=== PATIENT | female | born 1950 | race Caucasian/White ===

== ENCOUNTER 2017-11-04 21:00 | Inpatient (IN) | payer OTHER, MEDICAID ==
[~2017-11-04] VITALS: Ht 182.9 cm; Wt 90.8 kg
[2017-11-04 21:06] VITALS: Ht 182.9 cm; Wt 90.8 kg
[2017-11-04 21:24] LABS: BASOPHIL % 0.6 % (0-2); PLATELET COUNT 215 x10^3mcL (130-400)
[2017-11-04 21:36] LABS: ALBUMIN 3.4 g/dL (3.4-5.0); BILIRUBIN TOTAL 0.41 mg/dL (0.20-1.00); CALCIUM 8.8 mg/dL (8.5-10.1); CARBON DIOXIDE 31.1 mmol/L (21-32); CREATININE SERUM 1.1 mg/dL (0.6-1.0); TOTAL PROTEIN, SERUM 6.2 g/dL (6.4-8.2)
[2017-11-04 21:39] LABS: POTASSIUM SERUM 2.9 mmol/L (3.5-5.1)
[2017-11-04] MEDS ORDERED: ZESTRIL20 MG PO (23:41)
[2017-11-05 00:47] LABS: PHOSPHOROUS 3.1 mg/dL (2.5-4.9)
[2017-11-05 00:48] LABS: CHOLESTEROL/HDL RATIO 6.1
[2017-11-05 00:54] LABS: T3 TOTAL 1.1 ng/mL
[2017-11-05 00:57] VITALS: BP 142/80
[2017-11-05 00:57] LABS: FREE T4 0.83 ng/dL (0.76-1.46); FREE THYROXINE INDEX 2.1 ug/dL (1.4-4.5); T4(THYROXINE) 7.1 ug/dL (4.7-13.3)
[2017-11-05 02:33] LABS: microscopic required? NO
[2017-11-05 02:40] LABS: urine erythrocyte NEGATIVE (NEGATIVE)
[2017-11-05 02:49] LABS: AMPHETAMINE QUAL UR NONE DETECTED (See below)
[2017-11-05 05:19] VITALS: BP 137/76
[2017-11-05 09:03] VITALS: BP 136/79
[2017-11-05 09:15] LABS: BASOPHIL % 0.3 % (0-2); PLATELET COUNT 217 x10^3mcL (130-400); RED CELL DISTRIBUTION WIDTH 13.5 % (11.5-14.5)
[2017-11-05 10:07] LABS: CALCIUM 8.5 mg/dL (8.5-10.1); CARBON DIOXIDE 28.8 mmol/L (21-32); POTASSIUM SERUM 3.5 mmol/L (3.5-5.1)
[2017-11-05 13:06] VITALS: BP 141/84
[2017-11-05 17:28] VITALS: BP 142/84
[2017-11-05 20:50] VITALS: BP 139/76
[2017-11-06 05:36] VITALS: BP 135/73
[2017-11-06 06:17] LABS: BASOPHIL % 0.3 % (0-2); PLATELET COUNT 213 x10^3mcL (130-400); RED CELL DISTRIBUTION WIDTH 13.9 % (11.5-14.5)
[2017-11-06 06:42] LABS: CALCIUM 8.3 mg/dL (8.5-10.1); CARBON DIOXIDE 24.8 mmol/L (21-32); CHLORIDE SERUM 111 mmol/L (98-107); CREATININE SERUM 0.8 mg/dL (0.6-1.0); GFR1 > 60 mL/min; GLUCOSE SERUM 100 mg/dL (74-106); MAGNESIUM 1.9 mg/dL (1.8-2.4); PHOSPHOROUS 2.8 mg/dL (2.5-4.9); POTASSIUM SERUM 3.6 mmol/L (3.5-5.1); SODIUM SERUM 145 mmol/L (136-145)
[2017-11-06 09:29] VITALS: BP 135/73
== END 2017-11-06 09:50 | disposition home or self-care (01) | DRG 922 ==
LOC: ED 21:00 → EDBD 21:00 → DU 11-05 00:06
PROVIDERS: Emergency Medicine; Family Medicine
DX: T67.3XXA Heat exhaustion, anhydrotic, initial encounter (principal); K85.90 Acute pancreatitis without necrosis or infection, unspecified; E86.0 Dehydration; E87.6 Hypokalemia; E83.42 Hypomagnesemia; I10 Essential (primary) hypertension; E78.5 Hyperlipidemia, unspecified; Z66 Do not resuscitate; Z59.0 Homelessness; Z95.0 Presence of cardiac pacemaker; Z68.26 Body mass index [BMI] 26.0-26.9, adult; X30.XXXA Exposure to excessive natural heat, initial encounter; Y92.59 Other trade areas as the place of occurrence of the external cause
CPT/HCPCS: 83880; 84439; 97110-GP; J3475; J7030; Q0092